=== PATIENT | female | born 1975 | race Two or more races ===

== ENCOUNTER 2024-04-19 18:00 | Emergency (ER) | payer MEDICAID, OTHER ==
[~2024-04-19] VITALS: Ht 162.6 cm; Wt 73.0 kg
[2024-04-19 18:33] VITALS: BP 122/74; PULSE 89; RESP 17; TEMP 98; O2SAT 98
[2024-04-19] MEDS ORDERED: ACET500T58 PO (20:02)
[2024-04-19] MEDS ORDERED: CYCL-837 PO (20:02)
== END 2024-04-19 20:10 | disposition home or self-care (01) ==
LOC: ER 18:00
DX: S16.1XXA Strain of muscle, fascia and tendon at neck level, initial encounter (principal); S39.012A Strain of muscle, fascia and tendon of lower back, initial encounter; S30.0XXA Contusion of lower back and pelvis, initial encounter; S70.12XA Contusion of left thigh, initial encounter; V43.52XA Car driver injured in collision with other type car in traffic accident, initial encounter; Y93.89 Activity, other specified; Y92.410 Unspecified street and highway as the place of occurrence of the external cause; Y99.8 Other external cause status